=== PATIENT | female | born 1995 | race Caucasian/White ===

== ENCOUNTER 2016-12-31 11:50 | Emergency (ER) | payer BC, OTHER ==
[~2016-12-31] VITALS: Ht 165.1 cm; Wt 60.8 kg
[~2016-12-31 11:50] MED LIST: BCPILLS PO; LEVE500T13 PO; LEVO50TA6 PO
[2016-12-31 11:54] VITALS: Ht 165.1 cm; Wt 60.8 kg
[2016-12-31] MEDS ORDERED: ZONI100C2 PO (12:47)
[2016-12-31] MEDS ORDERED: ZONI50CA2 PO (12:47)
[2016-12-31] MEDS ORDERED: IUD'IUD (12:47)
--- NOTE | 2016-12-31 12:47 | EMERGENCY ROOM VISIT NOTE ---
History Report prepared by Norma: Yissel Whaley Under the Supervision of: Dr. Rosamaria Shaffer D.O. First contact with patient: 12:06 Chief Complaint: PELVIC PAIN Stated Complaint: HIP/PELVIC BONE MISPLACED/ABD. PAIN/IUD MISPLACED History of Present Illness The patient is a 21 year old female who presents to the Emergency Room with complaints of worsening pelvic pain for the past couple of months. She had her first IUD placed by her heavy equipment operator/paver in August. She states that shortly after it was placed she began experiencing a "hip click" in her right hip. She returned to her heavy equipment operator/paver for further evaluation and they thought that everything was fine. The patient states that since then her pain has continued and she has also developed pain into her lower abdomen, lower back, and right buttock. This pain is worsened when she lies on her stomach. Over the past couple of days this pain has become significant worse. She states that she can "feel my bones poking in my hip." Her abdomen feels more bloated and distended than usual. She has started to have pain with ambulation. The patient rates her current pain as a 4/10 in severity. She also notes that she can no longer feel the strings of her IUD. She reports creamy vaginal discharge. She is sexually active, but does not have any concern for STD exposure as she has had the same sexual partner for multiple years. She denies any new underwear, detergents, or soaps. She has not had regular periods since her IUD placement. The patient denies any other gynecological problems. She has noticed that her urine is darker than usual. She also denies any history of injury to her right hip. She does have a history of scoliosis and has been told by her chiropractor that she had some leg length discrepancy. Pt denies headache, change in vision, fevers, chills, chest pain, shortness of breath, nausea, vomiting, diarrhea, pain with urination, and melena. 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 Review of Systems See HPI for pertinent positives & negatives. A total of 10 systems reviewed and were otherwise negative. Past Medical & Surgical Medical Problems: (1) Scoliosis (2) Syncope and collapse Family History Patient reports no known family medical history. Social History Smoking Status: Never Smoker Drug Use: none Marital Status: in relationship Occupation Status: [employer] student Current/Historical Medications Scheduled Cephalexin Monohydrate (Keflex), 500 MG PO BID Levothyroxine Sodium (Levothyroxine Sodium), 50 MCG PO DAILY Zonisamide (Zonegran), 200 MG PO BID Zonisamide (Zonegran), 50 MG PO BID Miscellaneous Medications Iud's (Paragard Intrauterine Hand Salter) Allergies Coded Allergies: No Known Allergies (Unverified , 12/31/16) Physical Exam Vital Signs Date Time Temp Pulse Resp B/P (MAP) Pulse Ox O2 Delivery O2 Flow Rate FiO2 12/31/16 17:44 36.8 52 18 130/70 99 12/31/16 17:38 52 18 130/70 99 Room Air 12/31/16 15:30 60 16 113/72 98 12/31/16 13:39 65 18 119/67 99 Room Air 12/31/16 11:54 36.8 90 18 118/79 99 Room Air Physical Exam GENERAL: alert, tearful, well appearing, well nourished, no distress, non-toxic EYE EXAM: normal conjunctiva, PERRL and EOM's grossly intact OROPHARYNX: no exudate, no erythema, lips, buccal mucosa, and tongue normal and mucous membranes are moist NECK: supple, no nuchal rigidity, no adenopathy, non-tender LUNGS: Clear to auscultation. Normal chest wall mechanics HEART: no murmurs, S1 normal and S2 normal ABDOMEN: abdomen soft, she had slight tenderness to the lower abdomen and right flank, normo-active bowel sounds, no masses, no rebound or guarding. PELVIC: Minimal white discharge noted in the vaginal vault, no bleeding, no evidence of cervicitis, no CMT, no adnexal tenderness. BACK: Back is symmetrical on inspection and there is no deformity, no midline tenderness, no CVA tenderness. SKIN: no rashes and no bruising UPPER EXTREMITIES: upper extremities are grossly normal. LOWER EXTREMITIES: No pitting edema. NEURO EXAM: Normal sensorium, cranial nerves II-XII grossly intact, normal speech, no gross weakness of arms, no gross weakness of legs. Medical Decision & Procedures ER Provider Diagnostic Interpretation: Radiology results have been interpreted by the radiologist and reviewed by me. EXAMINATION: PELVIC ULTRASOUND (transabdominal and endovaginal scanning) CLINICAL HISTORY: Pelvic pain. Vaginal discharge. IUD. COMPARISON STUDY: None FINDINGS: The uterus measured 6.5 x 3.1 x 3.7 cm. An IUD is visualized within the lower uterine segment. The tip is 18 mm from the fundal apex. The endometrial stripe measured 5 mm. The right ovary measured 33 x 17 x 26 mm. There is a 15 mm dominant follicle. The left ovary measured 32 x 18 x 27 mm. There is no ultrasonographic evidence of ovarian torsion. It should be noted that ovarian torsion can be present with normal Doppler ultrasonographic findings. There was no evidence of pathologic free pelvic fluid. IMPRESSION: 1. An IUD is visualized within the lower uterine segment. The tip is 18 mm from the fundal apex 2. 5 mm endometrial stripe 3. Normal ovaries Electronically signed by: Roc Rodriguez M.D. 12/31/2016 3:40 PM Dictated Date/Time: 12/31/2016 3:38 PM RIGHT HIP UNILATERAL 2 VIEWS CLINICAL HISTORY: right hip pain Right pain COMPARISON: None. DISCUSSION: The bones and joint spaces appear intact. There is no evidence of fracture, dislocation or bony disease. There is no evidence for soft tissue swelling. IMPRESSION: Negative study. Electronically signed by: Alessandro Rosales M.D. 12/31/2016 3:05 PM Dictated Date/Time: 12/31/2016 3:04 PM Laboratory Results 12/31/16 12:30 Red Blood Count 4.07, Mean Corpuscular Volume 91.2, Mean Corpuscular Hemoglobin 31.2, Mean Corpuscular Hemoglobin Concent 34.2, Mean Platelet Volume 10.3, Neutrophils (%) (Auto) 44.7, Lymphocytes (%) (Auto) 23.5, Monocytes (%) (Auto) 6.0, Eosinophils (%) (Auto) 24.5, Basophils (%) (Auto) 1.3, Neutrophils # (Auto ) 2.85, Lymphocytes # (Auto) 1.50, Monocytes # (Auto) 0.38, Eosinophils # (Auto ) 1.56, Basophils # (Auto) 0.08 12/31/16 12:30 Test 12/31/16 12:30 12/31/16 16:40 White Blood Count 6.37 K/uL (4.8-10.8) Red Blood Count 4.07 M/uL (4.2-5.4) Hemoglobin 12.7 g/dL (12.0-16.0) Hematocrit 37.1 % (37-47) Mean Corpuscular Volume 91.2 fL (80-100) Mean Corpuscular Hemoglobin 31.2 pg (25-34) Mean Corpuscular Hemoglobin Concent 34.2 g/dl (32-36) Platelet Count 257 K/uL (130-400) Mean Platelet Volume 10.3 fL (7.4-10.4) Neutrophils (%) (Auto) 44.7 % Lymphocytes (%) (Auto) 23.5 % Monocytes (%) (Auto) 6.0 % Eosinophils (%) (Auto) 24.5 % Basophils (%) (Auto) 1.3 % Neutrophils # (Auto) 2.85 K/uL (1.4-6.5) Lymphocytes # (Auto) 1.50 K/uL (1.2-3.4) Monocytes # (Auto) 0.38 K/uL (0.11-0.59) Eosinophils # (Auto) 1.56 K/uL (0-0.5) Basophils # (Auto) 0.08 K/uL (0-0.2) RDW Standard Deviation 41.7 fL (36.4-46.3) RDW Coefficient of Variation 12.5 % (11.5-14.5) Immature Granulocyte % (Auto) 0.0 % Immature Granulocyte # (Auto) 0.00 K/uL (0.00-0.02) Urine Color YELLOW Urine Appearance CLEAR (CLEAR) Urine pH 5.5 (4.5-7.5) Urine Specific [place] 1.016 (1.000-1.030) Urine Protein TRACE (NEG) Urine Glucose (UA) NEG (NEG) Urine Ketones NEG (NEG) Urine Occult Blood NEG (NEG) Urine Nitrite NEG (NEG) Urine Bilirubin NEG (NEG) Urine Urobilinogen NEG (NEG) Urine Leukocyte Esterase TRACE (NEG) Urine WBC (Auto) 5-10 /hpf (0-5) Urine RBC (Auto) 0-4 /hpf (0-4) Urine Hyaline Casts (Auto) 5-10 /lpf (0-5) Urine Epithelial Cells (Auto) >30 /lpf (0-5) Urine Bacteria (Auto) 1+ (NEG) Anion Gap 10.0 mmol/L (3-11) Est Creatinine Clear Calc Drug Dose 79.4 ml/min Estimated GFR () 92.6 Estimated GFR (Non- 79.9 BUN/Creatinine Ratio 10.6 (10-20) Calcium Level 8.9 mg/dl (8.5-10.1) Human Chorionic Gonadotropin, Quant < 1 mIU/mL Date/Time Source Procedure Growth Status 12/31/16 16:40 Vaginal Swab Trichomonas Preparation - Final Complete Laboratory results per my review. Medications Administered Medications (Trade) Dose Ordered Sig/Amandeep Route Start Time Stop Time Status Last Admin Dose Admin Cephalexin Monohydrate (Keflex Cap) 500 mg NOW ONCE PO 12/31/16 15:45 12/31/16 15:46 DC 12/31/16 15:50 500 MG Fluconazole (Diflucan Tab) 150 mg NOW STAT PO 12/31/16 17:26 12/31/16 17:27 DC 12/31/16 17:35 150 MG ED Course 1206: The patient was evaluated in room C10 . A complete history and physical exam was performed. 1545: Keflex 500 mg PO 1618: I updated the patient on her results. She is doing well at this time. 1640: I performed a pelvic examination at this time. Please see the physical examination for my findings. I discussed the results and treatment plan with the patient. I answered all pertaining questions that she had. She expressed understanding and verbalized agreement. The patient will be discharged home.\\ 1726: Diflucan 150 mg PO Medical Decision Differential diagnoses includes STD, BV, malpositioned IUD, TOA, PID, UTI, pyelonephritis, kidney stone, musculoskeletal pain. Medication Reconciliation: I attest that I have personally reviewed the patient' s current medication list. Blood pressure screening: Patient was found to have normal blood pressure on screening and does not require follow-up. Patient with several chronic/subacute problems presenting today most concerned about her IUD and hip pain. Ultrasound reassuring. Cultures sent, the patient low risk for occult STD given sexual history. Doubt TOA, PID based on presentation. Patient neurologist history of scoliosis and is concerned that this may be contributing to her hip pain as well. Discussed outpatient evaluation by orthopedics. Patient also inquired about possible returning to her chiropractor for additional evaluation. Doubt stone, pyelo, patient with possible mild early UTI on urinalysis although specimen suboptimal. Doubt occult septic arthritis, lumbar radiculopathy, discitis, epidural abscess/ hematoma. No CVA tenderness, no midline spinal tenderness. Doubt other acute intra-abdominal etiology. Abdomen otherwise soft and nontender, labs reassuring. Did not feel patient warranted CAT scan at this time. Discussed follow-up, symptoms watch return for, antibiotics, pending cultures, she verbalized understanding was agreeable with plan. Patient given one time dose of Diflucan here for possible released infection given pelvic exam findings. Patient was negative for Trichomonas, GC and chlamydia are pending. Impression Primary Impression: Vaginal discharge Additional Impressions: Hip pain UTI (urinary tract infection) Scribe Attestation The scribe's documentation has been prepared under my direction and personally reviewed by me in its entirety. I confirm that the note above accurately reflects all work, treatment, procedures, and medical decision making performed by me. Departure Information Dispostion Home / Self-Care Prescriptions Cephalexin Monohydrate (Keflex) 500 Mg Cap 500 MG PO BID, #14 CAP Prov: Rosamaria Shaffer, DO 12/31/16 Referrals No Doctor, Assigned (PCP) Patient Instructions My [facility] Additional Instructions Please take antibiotic as prescribed. 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 Your IUD is in normal position according to the ultrasound. Please follow-up with your family doctor or with an customer energy specialist regarding the hip pain and clicking you have experienced. The x-rays here today were negative. They may perform additional testing including further imaging. If your cultures are positive you will receive a phone call and an antibiotic will be called in for you. If you develop any worsening abdominal pain, hip pain, back pain, develop fevers or chills, or nausea and vomiting, or you have any other new concerns, please return the emergency room. Problem Qualifiers Additional Impressions: Hip pain Laterality: right Qualified Codes: M25.551 - Pain in right hip UTI (urinary tract infection) Urinary tract infection type: acute cystitis Hematuria presence: without hematuria Qualified Codes: N30.00 - Acute cystitis without hematuria
[2016-12-31 12:52] LABS: BASO % 1.3 %; BASO ABS # 0.08 K/uL (0-0.2); COMPLETE YES; EOS % 24.5 %; HEMATOCRIT 37.1 % (37-47); LYMPH % 23.5 %; MEAN CELL VOLUME 91.2 fL (80-100); MEAN CORPUSCULAR HEMOGLOBIN 31.2 pg (25-34); MEAN CORPUSCULAR HGB CONC 34.2 g/dl (32-36); MEAN PLATELET VOLUME 10.3 fL (7.4-10.4); NEUT % 44.7 %; PLATELET COUNT 257 K/uL (130-400); RED BLOOD COUNT 4.07 M/uL (4.2-5.4); WHITE BLOOD COUNT 6.37 K/uL (4.8-10.8)
[2016-12-31 13:02] LABS: URINE APPEARANCE CLEAR (CLEAR); URINE BILIRUBIN NEG (NEG); URINE COLOR YELLOW; URINE EPITHELIAL CELL AUTO >30 /lpf (0-5); URINE NITRITE NEG (NEG); URINE PH 5.5 (4.5-7.5); URINE SPECIFIC GRAVITY 1.016 (1.000-1.030); UROBILINOGEN NEG (NEG); ZZUR CULT IF INDIC CLEAN CATCH YES
[2016-12-31 13:04] LABS: MANUAL MICROSCOPIC REQUIRED? NO; REVIEW REQ? NO
[2016-12-31 13:06] LABS: CALCIUM 8.9 mg/dl (8.5-10.1)
[2016-12-31 13:07] LABS: BUN/CREATININE RATIO 10.6 (10-20); POTASSIUM 3.7 mmol/L (3.5-5.1)
--- NOTE | 2016-12-31 15:06 | DIAGNOSTIC IMAGING REPORT ---
RIGHT HIP UNILATERAL 2 VIEWS CLINICAL HISTORY: right hip pain Right pain COMPARISON: None. DISCUSSION: The bones and joint spaces appear intact. There is no evidence of fracture, dislocation or bony disease. There is no evidence for soft tissue swelling. IMPRESSION: Negative study. Electronically signed by: Alessandro Rosales M.D. 12/31/2016 3:05 PM Dictated Date/Time: 12/31/2016 3:04 PM
--- NOTE | 2016-12-31 15:41 | DIAGNOSTIC IMAGING REPORT ---
EXAMINATION: PELVIC ULTRASOUND (transabdominal and endovaginal scanning) CLINICAL HISTORY: Pelvic pain. Vaginal discharge. IUD. COMPARISON STUDY: None FINDINGS: The uterus measured 6.5 x 3.1 x 3.7 cm. An IUD is visualized within the lower uterine segment. The tip is 18 mm from the fundal apex. The endometrial stripe measured 5 mm. The right ovary measured 33 x 17 x 26 mm. There is a 15 mm dominant follicle. The left ovary measured 32 x 18 x 27 mm. There is no ultrasonographic evidence of ovarian torsion. It should be noted that ovarian torsion can be present with normal Doppler ultrasonographic findings. There was no evidence of pathologic free pelvic fluid. IMPRESSION: 1. An IUD is visualized within the lower uterine segment. The tip is 18 mm from the fundal apex 2. 5 mm endometrial stripe 3. Normal ovaries Electronically signed by: Roc Rodriguez M.D. 12/31/2016 3:40 PM Dictated Date/Time: 12/31/2016 3:38 PM
[2016-12-31] MEDS ORDERED: CEPHALEXIN MONOHYDRATE 250 MG CAP PO ONE (15:45)
[2016-12-31] MEDS ORDERED: FLUCONAZOLE 50 MG TAB PO STA (17:26)
[2016-12-31] MEDS ORDERED: CEPH500C PO (17:30)
[2016-12-31 17:44] VITALS: BP 130/70; PULSE 52; TEMP 36.8; O2SAT 99
[2017-01-03 08:47] LABS: CHLAMYDIA TRACH RNA*** NOT DETECTED (NOT DETECTED); GC (NEIS GONORRHOEAE)RNA** NOT DETECTED (NOT DETECTED)
== END 2016-12-31 17:45 | disposition home or self-care (01) ==
LOC: C.EDB 11:53 → C.EDC 17:45
DX: N89.8 Other specified noninflammatory disorders of vagina (principal); M25.551 Pain in right hip; N30.00 Acute cystitis without hematuria; M41.9 Scoliosis, unspecified

== ENCOUNTER → 2017-03-20 | Outpatient (CLI) | payer BC ==
[~2017-03-20] MED LIST changes: -BCPILLS PO; +CEPH500C PO; +IUD'IUD; -LEVE500T13 PO; +ZONI100C2 PO; +ZONI50CA2 PO
--- NOTE | 2017-03-20 13:21 | EEG Procedure Note ---
EEG Procedure Note Date of Service Mar 20, 2017. Start / End Times Start Time: 9:33 AM End Time: 9:54 AM Referring Physician ANTONIO Al History This is a 22-year-old female with seizure-like activity. EEG for further evaluation of seizure etiology. Home Medication List Scheduled Cephalexin Monohydrate (Keflex), 500 MG PO BID Levothyroxine Sodium (Levothyroxine Sodium), 50 MCG PO DAILY Zonisamide (Zonegran), 200 MG PO BID Zonisamide (Zonegran), 50 MG PO BID Miscellaneous Medications Iud's (Paragard Intrauterine Forensic Medical Examiner) Description This is a 21 electrode EEG with a single channel dedicated to limited EKG. The electrodes were placed in accordance with the International 10-20 system. At the start of the recording the patient was in an awake state. Background was well organized and composed of symmetric mixed alpha and beta frequencies. There was a symmetric well-formed moderate amplitude 9-10 Hz posterior dominant rhythm that was reactive to eye opening and closure. Hyperventilation with good effort produced no abnormalities. Intermittent photic stimulation at various frequencies produced no abnormalities. Sleep was indicated by vertex waves and symmetric sleep spindles. There was occasional mild left temporal theta slowing and rarely generalized theta slowing lasting less than a second during the awake state. Interpretation This is an abnormal routine EEG secondary to occasional mild left temporal theta slowing during the awake state. There was no electrographic seizures or epileptiform discharges. Clinical Correlation While generalized theta slowing and temporal theta slowing can be seen in the drowsy state, focal left temporal theta slowing indicates cerebral dysfunction in that area, and may be consistent with a temporal lobe epilepsy depending on clinical presentation.
== END | disposition home or self-care (01) ==
LOC: C.NEUR 09:17
PROVIDERS: ATTEND Physician Assistant
DX: R56.9 Unspecified convulsions (principal)

== ENCOUNTER → 2017-04-30 | Outpatient (CLI) | payer BC ==
[2017-04-30 18:04] LABS: BASO % 0.4 %; BASO ABS # 0.04 K/uL (0-0.2); COMPLETE YES; EOS % 3.1 %; HEMATOCRIT 37.7 % (37-47); IG% 0.1 %; LYMPH % 22.3 %; LYMPH ABS # 2.04 K/uL (1.2-3.4); MEAN CELL VOLUME 91.7 fL (80-100); MEAN CORPUSCULAR HEMOGLOBIN 31.1 pg (25-34); MEAN PLATELET VOLUME 9.3 fL (7.4-10.4); MONO % 7.5 %; NEUT % 66.6 %; PLATELET COUNT 262 K/uL (130-400); RED BLOOD COUNT 4.11 M/uL (4.2-5.4); WHITE BLOOD COUNT 9.16 K/uL (4.8-10.8)
--- NOTE | 2017-04-30 18:08 | DIAGNOSTIC IMAGING REPORT ---
R HIP UNILATERAL 2 VIEWS, L HIP UNILATERAL 2 VIEWS CLINICAL HISTORY: M25.551 Right hip pain. Left hip pain. Prior fall. COMPARISON STUDY: Right hip 12/31/2016. FINDINGS: No fracture or dislocation within the right or left hip. Cartilage spaces are maintained. The visualized pelvic bones are intact. An intrauterine device is unchanged in position. Soft tissues are unremarkable. No radiopaque foreign bodies. IMPRESSION: Unremarkable bilateral hips. Electronically signed by: Tony Irene M.D. 04/30/2017 6:07 PM Dictated Date/Time: 04/30/2017 6:04 PM
[2017-04-30 18:27] LABS: ALT/SGPT 21 U/L (12-78); AST/SGOT 23 U/L (15-37); BLOOD UREA NITROGEN 10 mg/dl (7-18); CALCIUM 8.9 mg/dl (8.5-10.1); CARBON DIOXIDE 27 mmol/L (21-32); CHLORIDE 106 mmol/L (98-107); CREATININE 0.68 mg/dl (0.60-1.20); GLUCOSE 81 mg/dl (70-99); MAGNESIUM 2.4 mg/dl (1.8-2.4); POTASSIUM 3.8 mmol/L (3.5-5.1); SODIUM 137 mmol/L (136-145)
[2017-04-30 18:37] LABS: ALB/GLOB RATIO 1.1 (0.9-2); ALKALINE PHOSPHATASE 71 U/L (45-117)
== END | disposition home or self-care (01) ==
LOC: C.RAD 17:30
PROVIDERS: ATTEND Physician Assistant
DX: M25.551 Pain in right hip (principal); R56.9 Unspecified convulsions

== ENCOUNTER → 2017-05-09 | Outpatient (CLI) | payer BC ==
[2017-05-09 13:46] LABS: CHOLESTEROL/HDL RATIO 1.9
== END | disposition home or self-care (01) ==
LOC: C.LAB 12:02
PROVIDERS: ATTEND Internal Medicine
DX: Z00.00 Encounter for general adult medical examination without abnormal findings (principal); E03.9 Hypothyroidism, unspecified

== ENCOUNTER → 2017-05-10 | Outpatient (CLI) | payer BC ==
[2017-05-10 14:38] LABS: URINE APPEARANCE CLEAR (CLEAR); URINE BILIRUBIN NEG (NEG); URINE COLOR YELLOW; URINE NITRITE NEG (NEG); URINE PH 6.5 (4.5-7.5); URINE SPECIFIC GRAVITY 1.014 (1.000-1.030); UROBILINOGEN NEG (NEG)
[2017-05-10 14:47] LABS: MANUAL MICROSCOPIC REQUIRED? NO; REVIEW REQ? NO
[2017-05-15 02:04] LABS: CHLAMYDIA TRACH RNA*** NOT DETECTED (NOT DETECTED); GC (NEIS GONORRHOEAE)RNA** NOT DETECTED (NOT DETECTED); TRICHOMONAS VAGINALIS RNA** NOT DETECTED (NOT DETECTED)
== END | disposition home or self-care (01) ==
LOC: C.LABSPEC 13:26
PROVIDERS: ATTEND Physician Assistant
DX: N89.8 Other specified noninflammatory disorders of vagina (principal); R39.9 Unspecified symptoms and signs involving the genitourinary system

== ENCOUNTER 2017-06-02 20:34 | Inpatient (IN) | payer BC ==
[~2017-06-02] VITALS: Ht 162.6 cm; Wt 62.2 kg
[2017-06-02] MEDS ORDERED: NORE1CHW PO (21:03)
[2017-06-02] MEDS ORDERED: TRL300 PO (21:03)
[2017-06-02 21:04] VITALS: O2SAT 97
[2017-06-02 21:18] LABS: BASO ABS # 0.13 K/uL (0-0.2); COMPLETE YES; EOS % 20.9 %; IG% 0.5 %; LYMPH % 26.8 %; MEAN CELL VOLUME 90.9 fL (80-100); MEAN CORPUSCULAR HEMOGLOBIN 31.5 pg (25-34); MEAN CORPUSCULAR HGB CONC 34.7 g/dl (32-36); MEAN PLATELET VOLUME 9.6 fL (7.4-10.4); MONO % 4.4 %; NEUT % 46.4 %; PLATELET COUNT 327 K/uL (130-400); RED BLOOD COUNT 4.73 M/uL (4.2-5.4); WHITE BLOOD COUNT 13.08 K/uL (4.8-10.8)
[2017-06-02 21:25] LABS: BUN/CREATININE RATIO 17.4 (10-20); CALCIUM 9.1 mg/dl (8.5-10.1); CREATININE 0.84 mg/dl (0.60-1.20); POTASSIUM 3.2 mmol/L (3.5-5.1)
[2017-06-02 21:31] LABS: ACETAMINOPHEN < 2 ug/ml (10-30)
[2017-06-02 21:36] LABS: THYROID STIMULATING HORMONE 1.34 uIu/ml (0.300-4.500)
--- NOTE | 2017-06-02 21:46 | EMERGENCY ROOM VISIT NOTE ---
History Report prepared by Norma: Shayne Dean Under the Supervision of: Dr. Gregg Foster M.D. First contact with patient: 21:01 Chief Complaint: OVERDOSE (INTENTIONAL) Stated Complaint: DISORIENTED,LOSS OF FEELING FORGETFUL History of Present Illness The patient is a 22 year old female with a past medical history of epilepsy who presents to the ED with a cc of an episode of intentional overdose occurring today at around 1900. Positive vomiting and head pain on the top of her head. The patient states that she intentionally took "an entire bottle of either 50mg or 100mg Zonegran" today. She notes that she tried to intentionally hurt herself due to her anxiety and depression. Per boyfriend, the patient had been staying in the [facility] for the past three weeks, but was released yesterday. He notes she has tried to kill herself before. He reports that she tried to drink an entire bottle of NyQuil. HPI limited secondary to altered mental status. Source of History: patient Onset: today around 1900 Position: other (global) Quality: other (intentional overdose) Timing: other (an episode) Associated Symptoms: + vomiting Note: she also complains of head pain on the top of her head Review of Systems ROS limited secondary to altered mental status. Past Medical & Surgical Medical Problems: (1) Anxiety (2) Depression (3) Epilepsy (4) Scoliosis (5) Syncope and collapse Family History Patient reports no known family medical history. Social History Smoking Status: Never Smoker Drug Use: none Marital Status: in relationship Occupation Status: [employer] student Current/Historical Medications Scheduled Levothyroxine Sodium (Levothyroxine Sodium), 50 MCG PO DAILY Oxcarbazepine (Oxcarbazepine), 300 MG PO BID Zonisamide (Zonegran), 200 MG PO BID Zonisamide (Zonegran), 50 MG PO BID Allergies Coded Allergies: No Known Allergies (Unverified , 12/31/16) Physical Exam Vital Signs Date Time Temp Pulse Resp B/P (MAP) Pulse Ox O2 Delivery O2 Flow Rate FiO2 06/02/17 23:31 97 24 117/84 100 Room Air 06/02/17 23:01 83 23 120/83 100 Room Air 06/02/17 22:31 89 23 117/85 100 Room Air 06/02/17 22:01 100 13 124/82 99 Room Air 06/02/17 21:31 118 18 130/86 97 Room Air 06/02/17 21:09 91 06/02/17 21:04 97 Room Air 06/02/17 21:01 125/71 06/02/17 20:38 37.0 125 22 117/72 98 Room Air Physical Exam GENERAL: Awake, alert, well-appearing, NAD HENT: Normocephalic, atraumatic. EYES: Normal conjunctiva. Sclera non-icteric. NECK: Supple. No nuchal rigidity. FROM. RESPIRATORY: CTAB, no rhonchi, wheezing, crackles CARDIAC: No MRG, tachycardic. ABDOMEN: Soft, NTND, BS+ MSK: No chest wall TTP, no LE edema NEURO: CN 2-12 intact, 5/5 upper and lower extremity strength, no dysmetria, no drift, good finger to nose, no sensory deficits. ANO x3, repeated speech, GCS 15 , follows commands in all four extremities PSYCH: Depressed mood, tearful. SKIN: No rash or jaundice noted. Medical Decision & Procedures Laboratory Results 06/02/17 20:45 Red Blood Count 4.73, Mean Corpuscular Volume 90.9, Mean Corpuscular Hemoglobin 31.5, Mean Corpuscular Hemoglobin Concent 34.7, Mean Platelet Volume 9.6, Neutrophils (%) (Auto) 46.4, Lymphocytes (%) (Auto) 26.8, Monocytes (%) (Auto) 4.4, Eosinophils (%) (Auto) 20.9, Basophils (%) (Auto) 1.0, Neutrophils # (Auto ) 6.08, Lymphocytes # (Auto) 3.50, Monocytes # (Auto) 0.57, Eosinophils # (Auto ) 2.74, Basophils # (Auto) 0.13 06/02/17 20:45 Test 06/02/17 20:45 06/02/17 21:32 White Blood Count 13.08 K/uL (4.8-10.8) Red Blood Count 4.73 M/uL (4.2-5.4) Hemoglobin 14.9 g/dL (12.0-16.0) Hematocrit 43.0 % (37-47) Mean Corpuscular Volume 90.9 fL (80-100) Mean Corpuscular Hemoglobin 31.5 pg (25-34) Mean Corpuscular Hemoglobin Concent 34.7 g/dl (32-36) Platelet Count 327 K/uL (130-400) Mean Platelet Volume 9.6 fL (7.4-10.4) Neutrophils (%) (Auto) 46.4 % Lymphocytes (%) (Auto) 26.8 % Monocytes (%) (Auto) 4.4 % Eosinophils (%) (Auto) 20.9 % Basophils (%) (Auto) 1.0 % Neutrophils # (Auto) 6.08 K/uL (1.4-6.5) Lymphocytes # (Auto) 3.50 K/uL (1.2-3.4) Monocytes # (Auto) 0.57 K/uL (0.11-0.59) Eosinophils # (Auto) 2.74 K/uL (0-0.5) Basophils # (Auto) 0.13 K/uL (0-0.2) RDW Standard Deviation 40.5 fL (36.4-46.3) RDW Coefficient of Variation 12.1 % (11.5-14.5) Immature Granulocyte % (Auto) 0.5 % Immature Granulocyte # (Auto) 0.06 K/uL (0.00-0.02) Anion Gap 12.0 mmol/L (3-11) Est Creatinine Clear Calc Drug Dose 90.0 ml/min Estimated GFR () 113.5 Estimated GFR (Non- 98.0 BUN/Creatinine Ratio 17.4 (10-20) Calcium Level 9.1 mg/dl (8.5-10.1) Total Bilirubin 0.3 mg/dl (0.2-1) Direct Bilirubin 0.1 mg/dl (0-0.2) Aspartate Amino Transf (AST/SGOT) 20 U/L (15-37) Alanine Aminotransferase (ALT/SGPT) 82 U/L (12-78) Alkaline Phosphatase 110 U/L (45-117) Total Protein 7.8 gm/dl (6.4-8.2) Albumin 4.1 gm/dl (3.4-5.0) Thyroid Stimulating Hormone (TSH) 1.340 uIu/ml (0.300-4.500) Human Chorionic Gonadotropin, Qual NEG (NEG) Salicylates Level < 1.7 mg/dl (2.8-20) Acetaminophen Level < 2 ug/ml (10-30) Ethyl Alcohol mg/dL < 3.0 mg/dl (0-3) Laboratory results reviewed by me ECG Indication: tachycardia Rate (beats per minute): 104 Rhythm: sinus tachycardia Findings: other (normal axis, no STS changes or T-wave inversion) ED Course 2104: I spoke to poison control. 2119: The patient was evaluated in room C3. A complete history and physical exam was performed. Medical Decision The patient is a 22 year old female with a past medical history of epilepsy who presents to the ED with a cc of an episode of intentional overdose occurring today at around 1900. Positive vomiting and head pain on the top of her head. Differential diagnosis: Etiologies such as mood disorder, infection, hypoglycemia, electrolyte abnormalities, cardiac sources, intracerebral event, toxicologic, neurologic, as well as others were entertained. Patient was seen and evaluated at the bedside. I received some history from the boyfriend as well as the patient. Patient was a and O 3 albeit somewhat repetitive with her words but she was able to follow commands without issue. Patient was able to move all of her extremities to command. Patient took an unknown amount of Zonisamide at 7pm which was approximately 60 pills as she had a full bottle and she takes this medication twice a day (30 days x BID). Patient takes either 50 or 100 mg. 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 EKG showed sinus tach w/o PA, QRS, or QTc prolongation. Patient did have blood work that was completed. Patient's blood work and tox screen was fairly unremarkable. Patient was cleared medically and I did speak with the mental health specialist and was pending further evaluation and likely placement. I did sign out the patient to the evening physician who understood the plan of care. Head Trauma GCS Score: 15 Impression Primary Impression: Intentional drug overdose Additional Impression: Hypokalemia Scribe Attestation The scribe's documentation has been prepared under my direction and personally reviewed by me in its entirety. I confirm that the note above accurately reflects all work, treatment, procedures, and medical decision making performed by me. Departure Information Dispostion [facility] Acute Care Referrals Jordin Rehman M.D. (PCP) Patient Instructions My [facility] Problem Qualifiers Primary Impression: Intentional drug overdose Encounter type: initial encounter Qualified Codes: T50.902A - Poisoning by unspecified drugs, medicaments and biological substances, intentional self-harm , initial encounter
[2017-06-02 22:15] LABS: PREG INTERNAL NEGATIVE QC NEG CLEAR BACKGROUND; PREG INTERNAL POSITIVE QC POS CONTROL LINE
[2017-06-03] MEDS ORDERED: POTASSIUM CHLORIDE 10 MEQ TABCR PO STA (00:28)
[2017-06-03] MEDS ORDERED: MAGNESIUM OXIDE 400 MG TAB PO STA (00:28)
[2017-06-03] MEDS ORDERED: LORAZEPAM 2 MG/ML 1 ML VIAL IV STA (00:44)
[2017-06-03 00:49] LABS: URINE APPEARANCE TURBID (CLEAR); URINE BILIRUBIN NEG (NEG); URINE COLOR YELLOW; URINE EPITHELIAL CELL AUTO 20-30 /lpf (0-5); URINE NITRITE NEG (NEG); URINE SPECIFIC GRAVITY 1.018 (1.000-1.030); UROBILINOGEN NEG (NEG)
[2017-06-03 00:50] LABS: MANUAL MICROSCOPIC REQUIRED? NO; REVIEW REQ? YES
[2017-06-03 01:11] LABS: BENZODIAZEPINE, URINE NEG (NEG); COCAINE,URINE NEG (NEG); PHENCYCLIDINE, URINE NEG (NEG)
--- NOTE | 2017-06-03 06:01 | EMERGENCY ROOM VISIT NOTE ---
ED Visit Note First contact with patient: 01:00 This case was signed out to me at change of shift awaiting psychiatric evaluation and bed placement. The patient was accepted on 3 S. and will be admitted there voluntarily.
[2017-06-03 06:43] VITALS: O2SAT 97
[2017-06-03] MEDS ORDERED: hydrOXYzine HCL 25 MG TAB PO PRN (06:45)
[2017-06-03] MEDS ORDERED: SODIUM CHLORIDE 0.65% NA SOLN 45 ML (OCEAN) PRN (06:45)
[2017-06-03] MEDS ORDERED: NURSING VERBAL MED ORDER ONE (06:45)
[2017-06-03] MEDS ORDERED: ALUMINUM/MAGNESIUM SUSP 30 ML UDC PO PRN (06:45)
[2017-06-03] MEDS ORDERED: BISMUTH SUBSALICYLATE PER ML OMNICELL CHARGE PO PRN (06:45)
[2017-06-03 07:01] VITALS: BP_SYST 100; BP_SYST 106; BP_DIAS 66; BP_DIAS 68; PULSE 78; PULSE 94; TEMP 36.8
[2017-06-03 11:41] VITALS: BP 100/66; PULSE 78; TEMP 36.8; Ht 162.6 cm; Wt 62.2 kg
--- NOTE | 2017-06-03 11:57 | Psychiatric History & Physical ---
History Date of Service Jun 03, 2017. Identifying Data Rachel Martins is a 22-year-old female who resides in [place] with her boyfriend, who presented to the ED following an intentional toxic ingestion of zonegran in a suicide attempt. She is admitted voluntarily. Information is gathered from the patient and considered to be reliable. Chief Complaint "I took a bottle of pills.". History of Present Illness Rachel is a 22 yo woman who reports that she has been depressed for the last 2.5 years relative to multiple breakups and other stressors that she is poorly able to explain. She had never been in psychiatric treatment until 3 weeks ago when she made her first suicide attempt by overdosing on Nyquil. She was hospitalized at the [facility] for 20 days, having just been discharged on Saturday , 2 days ago. She reports that she was treated with Lexapro during her stay and diagnosed with depression. During her stay she decided that she needed to break up with her boyfriend of 2.5 years saying that she felt "stuck", "codependent". Upon leaving the [facility] she says that she had a visit with her mother who came up from the [facility], looked at some apartments, but then returned to the apartment she shares with her boyfriend, but asked him to go stay with his parents. She felt like she had no resources: no friends, no place to go, and began feeling sadder. On Saturday after mu-ism, she went to the pharmacy to rock picker her seizure meds (but did not fill her antidepressant) and when she couldn't shake the sadness, overdosed on the entire bottle of Zonegran about 7 pm. She summoned her BF after taking the OD, and he brought her to the ED. 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 Today the patient is a difficult historian, finding it difficult to express herself verbally. She indicates that she continues to feel depressed and admits that she ingested the Zonegran overdose yesterday because she "didn't want to be here" anymore. She reports that she has been having trouble sleeping , getting only about 4 hours per night. She experiences difficulty staying asleep and this has been going on for months. Her appetite has been "not good" and her weight has been up and down, currently saying she is down 5-10 pounds over the last 5-6 months. Her energy is described as "sleepy" and tends to sleep a great deal up to 16 hours at night. Although she is getting to work, she finds it difficult to get there. She describes having anxiety on a chronic basis, going on for years. She also experiences panic attacks that occur as frequently as weekly, triggered usually by work. She describes a sense of being unable to breathe during panic attacks. She reports a history of eating disorder behaviors, not wanting to put on weight and attempting to purge but says that it "never worked". She reports a history of self-injurious behaviors , usually cutting on her legs. Her last episode occurred while she was in the [facility] when she took her earring often used it to injure her left leg. She describes chronic problems with irritability but denies outright anger. She endorses periods during which she feels "wired", has a decreased need for sleep , increased spending $100-$300. Her last episode was prior to going to [employer]. She cannot tell me when the started or how many episodes she has had. Past Psychiatric History Current OP Treatment: psychiatrist (referred to [facility] but has not yet had an appointment), therapist (referred but has not had an appointment) Prior OP Treatment: no prior treatment Prior Psych Hospitalizations: [facility] (for 20 days, just having been discharged on June 01) Access to a Gun: No Suicide Attempts: Yes Past Medication Trials Lamictal-trialed for seizures, developed a rash Remeron-didn't work for depression Past Medical/Surgical History History of Concussion/Seizure: Yes (reports history of both grand mal and absence seizures having been diagnosed at the age of 20. Currently sees Lennie ALVAREZ for neurology) (1) Hypothyroidism (2) Epilepsy Allergies Allergies: Coded Allergies: No Known Allergies (Unverified , 12/31/16) Home Medications Scheduled Levothyroxine Sodium (Levothyroxine Sodium), 50 MCG PO DAILY Oxcarbazepine (Oxcarbazepine), 300 MG PO BID Zonisamide (Zonegran), 200 MG PO BID Zonisamide (Zonegran), 50 MG PO BID Family History Patient reports no known family medical history. History of Suicide: No History of Substance Abuse: Yes (grandfather alcohol) Psychiatric History: Yes (father and sister with depression) Alcohol Use Alcohol Use In Past 12 Months: Yes Will have alcohol in 2 days per week, generally having 3-5 drinks per day Smoking Use Smoking Status: Light Tobacco Smoker Smokes 7 cigarettes daily Substance History Patient admits to occasional use of cannabis, last use 3 weeks or more ago. Denies the use of other illegal substances. Has never had any legal problems as a result of substances. Personal History Lives in: [employer] with a boyfriend Childhood: Raised by both her mother and father until they at the age of 11. She lived with her mother. Her father then from complications from porphyria when she was 15. She has 1 older sister. 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 [employer] Relationship History: never Children: none Spiritual Affiliation: Jain Legal History: none Psychological Trauma History: Denies Hx Traumatic Event Review of Systems Constitutional: denies no symptoms reported, denies see HPI, denies chills, denies diaphoresis, denies fever, denies malaise, denies weakness, denies other Eyes: denies: no symptoms, as stated in HPI, eye pain, tearing, itching, redness, discharge, double vision, visual changes, blurred vision, photophobia, other ENT: denies: no symptoms reported, see HPI, ear pain, ear discharge, loss of hearing, tinnitus, nasal pain, nasal congestion, rhinorrhea, epistaxis, sore throat, stidor, throat swelling, mouth pain, mouth swelling, dental pain, gum swelling, other Cardiovascular: denies: no symptoms reported, see HPI, chest pain, chest tightness, chest pressure, diaphoresis, palpitations, syncope, other Respiratory: reports: cough (nonproductive) Gastrointestinal: denies no symptoms reported, denies see HPI, denies abdominal pain, denies constipation, denies diarrhea, denies nausea, denies vomiting, denies other Genitourinary - Female: denies: no symptoms, see HPI, rash, amenorrhea, dysmenorrhea, menorrhagia, metrorrhagia, , vaginal bleeding, vaginal itching, vaginal discharge, vulvadynia, other Musculoskeletal: denies no symptoms reported, denies see HPI, denies back pain , denies gout, denies joint pain, denies joint swelling, denies muscle pain, denies muscle stiffness, denies neck pain, denies other Integumentary: denies no symptoms reported, denies see HPI, denies change in color, denies change in hair/nails, denies dryness, denies lesions, denies lumps , denies rash, denies other Neurologic: denies: no symptoms, see HPI, headache, numbness, paresthesias, pre -existing deficit, seizure, tingling, tremors, general weakness, tics, focal weakness, vertigo, lethargy, memory loss, dizziness, other Endocrine: denies: no symptoms, as stated in HPI, cold intolerance, heat intolerance, hair changes, goiter, polydipsia, polyuria, skin changes, other Hematologic / Lymphatic: denies: no symptoms, as stated in HPI, abnormal clotting, adenopathy, anemia, easy bleeding, easy bruising, gums bleeding, petechiae, other Examination Physical Examination Exam performed by Dr. Foster in the emergency department yesterday has been reviewed and accepted as medical clearance for our unit Vital Signs Vital Signs Past 12 Hours Date Time Temp Pulse Resp B/P (MAP) Pulse Ox O2 Delivery O2 Flow Rate FiO2 06/03/17 07:01 36.8 78 16 106/68 94 100/66 06/03/17 06:43 85 16 114/61 97 06/03/17 01:47 75 18 119/69 97 Room Air 06/03/17 00:52 96 06/03/17 00:01 105 16 141/95 98 Room Air 06/02/17 23:31 97 24 117/84 100 Room Air Laboratory Results Last 24 Hours Test 06/02/17 20:45 06/02/17 21:32 06/03/17 00:35 White Blood Count 13.08 K/uL Red Blood Count 4.73 M/uL Hemoglobin 14.9 g/dL Hematocrit 43.0 % Mean Corpuscular Volume 90.9 fL Mean Corpuscular Hemoglobin 31.5 pg Mean Corpuscular Hemoglobin Concent 34.7 g/dl Platelet Count 327 K/uL Mean Platelet Volume 9.6 fL Neutrophils (%) (Auto) 46.4 % Lymphocytes (%) (Auto) 26.8 % Monocytes (%) (Auto) 4.4 % Eosinophils (%) (Auto) 20.9 % Basophils (%) (Auto) 1.0 % Neutrophils # (Auto) 6.08 K/uL Lymphocytes # (Auto) 3.50 K/uL Monocytes # (Auto) 0.57 K/uL Eosinophils # (Auto) 2.74 K/uL Basophils # (Auto) 0.13 K/uL RDW Standard Deviation 40.5 fL RDW Coefficient of Variation 12.1 % Immature Granulocyte % (Auto) 0.5 % Immature Granulocyte # (Auto) 0.06 K/uL Sodium Level 139 mmol/L Potassium Level 3.2 mmol/L Chloride Level 104 mmol/L Carbon Dioxide Level 23 mmol/L Anion Gap 12.0 mmol/L Blood Urea Nitrogen 15 mg/dl Creatinine 0.84 mg/dl Est Creatinine Clear Calc Drug Dose 90.0 ml/min Estimated GFR () 113.5 Estimated GFR (Non- 98.0 BUN/Creatinine Ratio 17.4 Random Glucose 114 mg/dl Calcium Level 9.1 mg/dl Total Bilirubin 0.3 mg/dl Direct Bilirubin 0.1 mg/dl Aspartate Amino Transf (AST/SGOT) 20 U/L Alanine Aminotransferase (ALT/SGPT) 82 U/L Alkaline Phosphatase 110 U/L Total Protein 7.8 gm/dl Albumin 4.1 gm/dl Thyroid Stimulating Hormone (TSH) 1.340 uIu/ml Human Chorionic Gonadotropin, Qual NEG Salicylates Level < 1.7 mg/dl Acetaminophen Level < 2 ug/ml Ethyl Alcohol mg/dL < 3.0 mg/dl Urine Color YELLOW Urine Appearance TURBID Urine pH 8.0 Urine Specific [place] 1.018 Urine Protein NEG Urine Glucose (UA) NEG Urine Ketones NEG Urine Occult Blood NEG Urine Nitrite NEG Urine Bilirubin NEG Urine Urobilinogen NEG Urine Leukocyte Esterase LARGE Urine WBC (Auto) >30 /hpf Urine RBC (Auto) 0-4 /hpf Urine Hyaline Casts (Auto) 0 /lpf Urine Epithelial Cells (Auto) 20-30 /lpf Urine Bacteria (Auto) 2+ Urine Crystals AMORPHOUS SEDIMENT Urine Yeast (Auto) Urine Opiates Screen NEG Urine Methadone, Qualitative NEG Urine Barbiturates NEG Urine Phencyclidine (PCP) Level NEG Ur Amphetamine/Methamphetamine NEG MDMA (Ecstasy) Screen NEG Urine Benzodiazepines Screen NEG Urine Cocaine Metabolite NEG Urine Marijuana (THC) NEG Mental Examination During interview pt is: alert and oriented Appearance: disheveled Eye contact is: poor Motor behavior is: psychomotor retardation Speech: other (slowed, minimal) Affect: tearful Mood is: depressed Thought process: other (easily distracted) Thought content: reality based without delusions Suicidal thought are: present, Plan: present, Intent: present (overdose) Homicidal thoughts are: denied Hallucinations: denies auditory, denies visual Cognition: attention grossly intact Intelligence estimated to be: average Insight: impaired Judgement: impaired Impression / Recommendations Impression 22-year-old woman who just got out of the [facility] 2 days ago, is admitted to our unit voluntarily following an intentional toxic ingestion of Zonegran. Although the patient reports she was treated for depression with Lexapro while in the [facility], today she is giving a decidedly bipolar description of episodes in which she is wired, does not sleep and spends money she does not have. She too believes that she has had mood cycling that may represent bipolar disorder and is willing to consider mood stabilizing agents. I have suggested we start start with Latuda if it is affordable with her insurance. I will have the nursing staff explore this with the pharmacy. She overdosed on Zonegran and so I will hold that today but I will renew her oxcarbazepine, and levothyroxine. She is unsure of her dose of Lexapro although I am hesitant to restart this in the absence of good mood stabilization and as above, would prefer to start Latuda. We will need to explore her aftercare arrangements, confirm appointments, likely have a meeting with her family. Poison control was consulted while in the emergency department and suggested only supportive care. Her vital signs today are stable. Review of labs reveals a possible urinary tract infection and so will order a culture. She also admits that she intentionally self injured while a patient at [facility] and so will alert staff to be vigilant. At this time, the patient requires inpatient mental health treatment due to the severity of her condition and the risk for self-harm if discharged. Inventory Assets Strengths: Support from family, is employed Needs: Improve healthy coping strategies Risk Factors Assessment : Yes /single/: Yes Higher / Fall in social status: No Access to guns: No Health problems: Yes Mental Health Diagnoses: Yes Substance use disorders: No Previous attempt: Yes Previous psychiatric stay: Yes Hopelessness: Yes Smoker: Yes Protective Factors Assessment Protestant beliefs: Yes : No Responsible for young children: No Employed: Yes Stable relationships: No Supportive family: Yes Recommendations (1) bipolar disorder NOS, depressed, severe, without psychotic features 06/03 - Patient endorses multiple episodes where she feels "wired", has decreased need for sleep and increased spending. We will have nursing explore whether Latuda is affordable with her current insurance. - Will not restart Lexapro at this time in view of possible bipolar diagnosis - Obtain records from recent [facility] hospitalization - Every 15 minute checks for safety - Encourage participation in group and individual counseling - Family meeting if indicated - Confirm outpatient appointments at [facility] - Assist the patient to learn new healthy coping strategies - Recommend avoiding all alcohol and cannabis for the foreseeable future (2) Tobacco use disorder 06/03 - Recommend abstinence or reduction. Will supply with nicotine replacement if patient requests (3) History of self injurious behavior 06/03 - History of self injuring even while in [facility] with an earring. We will encourage staff to be vigilant (4) Epilepsy 06/03 - will resume outpatient doses of oxcarbazepine - Will hold Zonegran another day in view of overdose of an entire bottle - Seizure precautions - If questions about dosages, will obtain records from [facility] ALVARE[facility] in neurology (5) Hypothyroidism 06/03 - TSH within normal limits. Continue home dosing Has been reviewed with Dr. Lili Kendrick CPT Code Initial Hospital Care: [id number]
[2017-06-03] MEDS: ACETAMINOPHEN 325 MG TAB PO PRN (15:54)
[2017-06-03] MEDS: OXCARBAZEPINE 150 MG TAB PO SCH (21:38)
[2017-06-03] MEDS: QUETIAPINE FUMARATE 25 MG TAB PO SCH (21:47)
[2017-06-04 07:02] VITALS: BP_SYST 106; BP_DIAS 70; BP_DIAS 73; PULSE 87; PULSE 89; TEMP 36.3
[2017-06-04 08:27] LABS: CHOLESTEROL/HDL RATIO 2.5
[2017-06-04] MEDS: LEVOTHYROXINE 50 MCG TAB PO SCH (08:48)
[2017-06-04] MEDS: OXCARBAZEPINE 150 MG TAB PO SCH ×2 (09:10→21:01)
[2017-06-04] MEDS: ACETAMINOPHEN 325 MG TAB PO PRN (09:20)
[2017-06-04 10:22] LABS: URINE APPEARANCE TURBID (CLEAR); URINE BILIRUBIN NEG (NEG); URINE COLOR YELLOW; URINE EPITHELIAL CELL AUTO 20-30 /lpf (0-5); URINE NITRITE NEG (NEG); URINE PH 6.5 (4.5-7.5); URINE SPECIFIC GRAVITY 1.023 (1.000-1.030); UROBILINOGEN NEG (NEG); ZZUR CULT IF INDIC CLEAN CATCH YES
[2017-06-04 10:25] LABS: MANUAL MICROSCOPIC REQUIRED? NO; REVIEW REQ? YES
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
[2017-06-04] MEDS: NICOTINE POLACRILEX 2 MG GUM MT PRN ×2 (15:52→18:42)
[2017-06-04] MEDS: QUETIAPINE FUMARATE 25 MG TAB PO SCH (21:01)
[2017-06-04] MEDS: hydrOXYzine HCL 25 MG TAB PO PRN (21:02)
[2017-06-05 07:09] VITALS: BP_SYST 112; BP_SYST 114; BP_DIAS 76; BP_DIAS 82; PULSE 83; PULSE 92; TEMP 36.9
[2017-06-05] MEDS: LEVOTHYROXINE 50 MCG TAB PO SCH (07:41)
[2017-06-05] MEDS: OXCARBAZEPINE 150 MG TAB PO SCH ×2 (09:25→21:02)
[2017-06-05] MEDS ORDERED: ESCI10TA17 PO (10:22)
[2017-06-05] MEDS: NICOTINE POLACRILEX 2 MG GUM MT PRN (10:30)
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
[2017-06-05] MEDS: QUETIAPINE FUMARATE 25 MG TAB PO SCH (21:02)
[2017-06-05] MEDS: hydrOXYzine HCL 25 MG TAB PO PRN (22:28)
[2017-06-06 06:57] VITALS: BP_SYST 111; BP_SYST 99; BP_DIAS 63; BP_DIAS 75; PULSE 66; PULSE 69; TEMP 36.7
[2017-06-06] MEDS: LEVOTHYROXINE 50 MCG TAB PO SCH (08:30)
[2017-06-06] MEDS: OXCARBAZEPINE 150 MG TAB PO SCH ×2 (09:32→21:29)
[2017-06-06] MEDS: MAGNESIUM HYDROXIDE SUSP 30 ML UDC PO PRN ×2 (11:00→19:45)
--- NOTE | 2017-06-06 11:43 | Psychiatric Progress Notes ---
Progress Note Date of Service Jun 06, 2017. Interval History Rachel Martins is a 22-year-old female who resides in [place] with her boyfriend, has a history of major depression and generalized anxiety disorder who presented to the ED following an intentional toxic ingestion of zonegran in a suicide attempt. She had just been discharged from the [facility] 2 days prior, and is admitted voluntarily. Chief Complaint "A little concerned. ". Subjective Patient was seen & assessed interval progress reviewed with Treatment Team. The patient had a phone meeting with her mother this AM during which they talked about many things, and the patient felt overwhelmed. She has now decided that she has to move home and will need to find someone to sublet her apt. 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 She was able to accomplish her goal to do her laundry yesterday as well. Her mood is better today and denies any SI or violent thoughts toward the male from [facility] that she feels manipulated her. She is feeling much closer to being able to go home now that she has a plan. Her sleep was restless last night, but observed to be for 6.5 hours by staff. Appetite is good. She continues to deny sxs of UTI, but culture positive and will start ABX Review of Systems Constitutional: No fever, No chills, No sweats, No weight loss, No weakness, No fatigue, No problem reported ENT: No hearing loss, No unusual epistaxis, No nasal symptoms, No sore throat, No tinnitus, No dental problems, No trouble swallowing, No problem reported Respiratory: No cough, No sputum, No wheezing, No shortness of breath, No dyspnea on exertion, No dyspnea at rest, No hemoptysis, No problem reported Cardiovascular: No chest pain, No orthopnea, No PND, No edema, No claudication , No palpitations, No problem reported Abdomen: No pain, No nausea, No vomiting, No diarrhea, No constipation, No GI bleeding, No problem reported Musculoskeletal: No joint pain, No muscle pain, No swelling, No calf pain, No problem reported Neurologic: No memory loss, No paralysis, No weakness, No numbness/tingling, No vertigo, No balance problems, No problem reported Psychiatric: + depression symptoms (improving), + anxiety Integumentary: No rash, No itch, No new/changing skin lesions, No color change , No bleeding, No problem reported Sleep Information Total Hours of Sleep: 6.50 Meal Information Percent of Breakfast Consumed: 100 Percent of Lunch Consumed: 90 Percent of Dinner Consumed: 100 Mental Status Exam During interview pt is: alert and oriented, cooperative Appearance: appropriately dressed (with a blanket wrapped around her.), appropriately groomed Eye contact is: fair Motor behavior is: steady gait & station, no abnormal motor movements Speech: normal in rate, rhythm & volume Affect: blunted Mood is: anxious Thought process: goal directed Thought content: reality based without delusions Suicidal thought are: denied Homicidal thoughts are: denied Hallucinations: denies auditory, denies visual Cognition: attention grossly intact Intelligence estimated to be: average Insight: impaired Judgement: impaired Medication Trials (1) Past Psych Medications Lamotrigine for seizures - rash Mirtazapine - ineffective Last Edited By: Lili Kendrick on Jun 04, 2017 10:05 Impression Having tackled some of her decisions, today she is feeling better and without SI. Will be moving home after she finds a subletter but in the meanwhile will call work again today to talk about returning which we recommend she return to right away. Sensitivity back on UA and will start Macrobid 100 mg. BID X 7d . If progress continues, would like to discharge tomorrow so that she can make her OP therapy appt. Plan (1) bipolar disorder NOS, depressed, severe, without psychotic features 06/03 - Patient endorses multiple episodes where she feels "wired", has decreased need for sleep and increased spending. We will have nursing explore whether Latuda is affordable with her current insurance. - Will not restart Lexapro at this time in view of possible bipolar diagnosis - Obtain records from recent [facility] hospitalization - Every 15 minute checks for safety - Encourage participation in group and individual counseling - Family meeting if indicated - Confirm outpatient appointments at [facility] - Assist the patient to learn new healthy coping strategies - Recommend avoiding all alcohol and cannabis for the foreseeable future 06/04 - Differential includes unipolar depression, bipolar disorder, or borderline personality disorder. There is also an anxiety component. Continue oxcarbazepine 300 mg twice a day (being prescribed for seizures, but also acts as a mood stabilizer) and quetiapine 50 mg daily at bedtime. Lurasidone was not covered. Fasting labs were checked today for baseline on an atypical antipsychotic and were normal. - Explore option of a family meeting, either with her boyfriend whom she lives with her possibly her mother who is in [place]. - Patient has been advised that groups and therapy are a big part of her treatment here, and that she should be getting out of bed during the day and participating in them. We will have staff lock her door during group times if she is not able to motivate to do this on her own. 06/05 - Continue Seroquel 50 mg. HS - Meeting with boyfriend and mother - monitoring labs on atypicals WNL. 06/06 - Meeting with mother this AM - Plans to move home eventually, but will return to work while subletting her apartment (2) Tobacco use disorder 06/03 - Recommend abstinence or reduction. Will supply with nicotine replacement if patient requests 06/04 - patient requesting to smoke a cigarette, and was informed that this is a nonsmoking campus. Nicotine gum ordered at her request. (3) History of self injurious behavior 06/03 - History of self injuring even while in [place] with an earring. We will encourage staff to be vigilant. (4) Epilepsy 06/03 - will resume outpatient doses of oxcarbazepine - Will hold Zonegran another day in view of overdose of an entire bottle - Seizure precautions - If questions about dosages, will obtain records from [facility]ie ALVAREZ in neurology (5) Hypothyroidism 06/03 - TSH within normal limits. Continue home dosing (6) UTI (urinary tract infection) 06/04 - urinalysis showed large leukocyte esterase, > 30 WBCs, 2+ bacteria, and 20-30 epis. Culture ordered. 06/06 - Macrobid 100 mg. BID X 7d (7) Borderline personality disorder 06/05 - Meets DSM V criteria - Will provide educational material - Will require intermission coordinator therapy (8) Alcohol abuse 06/06 The patient's AUDIT score suggests problematic drinking (Zone III WHO). Brief intervention was offered and accepted Intervention (if performed) was greater than 5 min in length. Brief interventions include: 1. Assess Readiness to Quit, 2. Advise: Help Patient to Reduce or Abstain from Alcohol, 3. Agree: Set Specific, Feasible Goals, 4. Assist: Anticipate barriers, Problem-Solving Solutions. Social work to 5. Arrange: Referrals to appropriate treatment. Summary of intervention: The patient is in precontemplation stage with regards to transtheoretical model of change. The patient is advised to decrease alcohol consumption due to depressant effects and risk of interactions with prescription medications. The patient agreed to reduce and will be provided with recovery materials to continue to education self on how to cope with their condition without drinking. Discharge / Aftercare Planning Primary Care Physician: Name: Dr Rehman Therapist: Name: [facility] Step down appointment Date of Appointment: Jun 07, 2017 Time of Appointment: 10:00am Neurologist: Name: Dr Arreaga Date of Appointment: Aug 12, 2017 Time of Appointment: 3:30pm Visit Code E&M Code: 82288 Inventory Assets Strengths: Support from family, is employed Needs: Improve healthy coping strategies Risk Factors Assessment : Yes /single/: Yes Higher / Fall in social status: No Health problems: Yes Mental Health Diagnoses: Yes Substance use disorders: No Previous attempt: Yes Previous psychiatric stay: Yes Hopelessness: Yes Smoker: Yes Protective Factors Assessment Restorationism beliefs: Yes : No Responsible for young children: No Employed: Yes Stable relationships: No Supportive family: Yes Data Vital Signs Last 24 Hrs: Date Time Temp Pulse Resp B/P (MAP) Pulse Ox O2 Delivery O2 Flow Rate FiO2 06/06/17 06:57 36.7 66 16 99/63 69 111/75 Meds Administered Last 24 Hrs: Current Inpatient Medications Medications (Trade) Dose Ordered Sig/Amandeep Route Start Time Stop Time Status Last Admin Dose Admin Acetaminophen (Tylenol Tab) 650 mg Q4H PRN PO 06/03/17 06:45 07/03/17 06:44 06/04/17 09:20 650 MG Al Hydroxide/Mg Hydroxide (Maalox Susp) 30 ml Q4H PRN PO 06/03/17 06:45 07/03/17 06:44 Bismuth Subsalicylate (Kaopectate Liqd) 15 ml DAILY PRN PO 06/03/17 06:45 07/03/17 06:44 Magnesium Hydroxide (Milk Of Magnesia Susp) 30 ml DAILY PRN PO 06/03/17 06:45 12/13/17 06:44 06/06/17 11:00 30 ML Sodium Chloride ([place] Nasal [place]) PRN PRN NA 06/03/17 06:45 07/03/17 06:44 Hydroxyzine HCl (Vistaril Tab) 50 mg HSZ PRN PO 06/03/17 06:45 07/03/17 06:44 06/05/17 22:28 50 MG Hydroxyzine HCl (Vistaril Tab) 25 mg Q4H PRN PO 06/03/17 06:45 07/03/17 06:44 06/04/17 15:50 25 MG Levothyroxine Sodium (Synthroid Tab) 50 mcg DAILYBB PO 06/04/17 08:00 07/04/17 07:59 06/06/17 08:30 50 MCG Oxcarbazepine (Trileptal Tab) 300 mg BID PO 06/03/17 22:00 07/03/17 21:59 06/06/17 09:32 300 MG Quetiapine Fumarate (seroQUEL TAB) 50 mg HS PO 06/03/17 22:00 07/03/17 21:59 06/05/17 21:02 50 MG Nicotine Polacrilex (Nicorette 2MG Gum) 1 piece Q2H PRN MT 06/04/17 10:00 07/04/17 09:59 06/05/17 10:30 1 PIECE Nitrofurantoin Macrocrystals (Macrobid Cap) 100 mg BID PO 06/06/17 22:00 06/14/17 22:00 UNV Nitrofurantoin Macrocrystals (Macrobid Cap) 100 mg 1123 ONCE PO 06/06/17 11:23 06/06/17 11:24 UNV Lab Results Last 24 Hrs: 06/02/17 20:45 Red Blood Count 4.73, Mean Corpuscular Volume 90.9, Mean Corpuscular Hemoglobin 31.5, Mean Corpuscular Hemoglobin Concent 34.7, Mean Platelet Volume 9.6, Neutrophils (%) (Auto) 46.4, Lymphocytes (%) (Auto) 26.8, Monocytes (%) (Auto) 4.4, Eosinophils (%) (Auto) 20.9, Basophils (%) (Auto) 1.0, Neutrophils # (Auto ) 6.08, Lymphocytes # (Auto) 3.50, Monocytes # (Auto) 0.57, Eosinophils # (Auto ) 2.74, Basophils # (Auto) 0.13 06/02/17 20:45 Test 06/02/17 20:45 06/02/17 21:32 06/03/17 00:35 06/04/17 07:14 White Blood Count 13.08 K/uL (4.8-10.8) Red Blood Count 4.73 M/uL (4.2-5.4) Hemoglobin 14.9 g/dL (12.0-16.0) Hematocrit 43.0 % (37-47) Mean Corpuscular Volume 90.9 fL (80-100) Mean Corpuscular Hemoglobin 31.5 pg (25-34) Mean Corpuscular Hemoglobin Concent 34.7 g/dl (32-36) Platelet Count 327 K/uL (130-400) Mean Platelet Volume 9.6 fL (7.4-10.4) Neutrophils (%) (Auto) 46.4 % Lymphocytes (%) (Auto) 26.8 % Monocytes (%) (Auto) 4.4 % Eosinophils (%) (Auto) 20.9 % Basophils (%) (Auto) 1.0 % Neutrophils # (Auto) 6.08 K/uL (1.4-6.5) Lymphocytes # (Auto) 3.50 K/uL (1.2-3.4) Monocytes # (Auto) 0.57 K/uL (0.11-0.59) Eosinophils # (Auto) 2.74 K/uL (0-0.5) Basophils # (Auto) 0.13 K/uL (0-0.2) RDW Standard Deviation 40.5 fL (36.4-46.3) RDW Coefficient of Variation 12.1 % (11.5-14.5) Immature Granulocyte % (Auto) 0.5 % Immature Granulocyte # (Auto) 0.06 K/uL (0.00-0.02) Anion Gap 12.0 mmol/L (3-11) Est Creatinine Clear Calc Drug Dose 90.0 ml/min Estimated GFR () 113.5 Estimated GFR (Non- 98.0 BUN/Creatinine Ratio 17.4 (10-20) Calcium Level 9.1 mg/dl (8.5-10.1) Total Bilirubin 0.3 mg/dl (0.2-1) Direct Bilirubin 0.1 mg/dl (0-0.2) Aspartate Amino Transf (AST/SGOT) 20 U/L (15-37) Alanine Aminotransferase (ALT/SGPT) 82 U/L (12-78) Alkaline Phosphatase 110 U/L (45-117) Total Protein 7.8 gm/dl (6.4-8.2) Albumin 4.1 gm/dl (3.4-5.0) Thyroid Stimulating Hormone (TSH) 1.340 uIu/ml (0.300-4.500) Human Chorionic Gonadotropin, Qual NEG (NEG) Salicylates Level < 1.7 mg/dl (2.8-20) Acetaminophen Level < 2 ug/ml (10-30) Ethyl Alcohol mg/dL < 3.0 mg/dl (0-3) Urine Yeast (Auto) (NONE PRSENT) Urine Opiates Screen NEG (NEG) Urine Methadone, Qualitative NEG (NEG) Urine Barbiturates NEG (NEG) Urine Phencyclidine (PCP) Level NEG (NEG) Ur Amphetamine/Methamphetamine NEG (NEG) MDMA (Ecstasy) Screen NEG (NEG) Urine Benzodiazepines Screen NEG (NEG) Urine Cocaine Metabolite NEG (NEG) Urine Marijuana (THC) NEG (NEG) Fasting Glucose 77 mg/dl (70-99) Triglycerides Level 79 mg/dl (0-150) Cholesterol Level 195 mg/dl (0-200) HDL Cholesterol 77 mg/dl LDL Cholesterol, Calculated 102 mg/dl VLDL Cholesterol, Calculated 16 mg/dl Cholesterol/HDL Ratio 2.5 Test 06/04/17 09:30 Urine Color YELLOW Urine Appearance TURBID (CLEAR) Urine pH 6.5 (4.5-7.5) Urine Specific [place] 1.023 (1.000-1.030) Urine Protein NEG (NEG) Urine Glucose (UA) NEG (NEG) Urine Ketones NEG (NEG) Urine Occult Blood NEG (NEG) Urine Nitrite NEG (NEG) Urine Bilirubin NEG (NEG) Urine Urobilinogen NEG (NEG) Urine Leukocyte Esterase MODERATE (NEG) Urine WBC (Auto) 10-30 /hpf (0-5) Urine RBC (Auto) 0-4 /hpf (0-4) Urine Hyaline Casts (Auto) 1-5 /lpf (0-5) Urine Epithelial Cells (Auto) 20-30 /lpf (0-5) Urine Bacteria (Auto) 1+ (NEG) Urine Crystals AMORPHOUS SEDIMENT (NONE Urine Pathogenic Casts /lpf (0) Date/Time Source Procedure Growth Status 06/04/17 09:30 Urine , Clean Catch Urine Culture - Preliminary Staphylococcus Saprophyticus Resulted
[2017-06-06] MEDS ORDERED: NITROFURANTOIN MONOHYDRATE 100 MG CAP PO ONE (11:45)
[2017-06-06] MEDS: NITROFURANTOIN MONOHYDRATE 100 MG CAP PO SCH (21:29)
[2017-06-06] MEDS: QUETIAPINE FUMARATE 25 MG TAB PO SCH (21:29)
[2017-06-06] MEDS: hydrOXYzine HCL 25 MG TAB PO PRN (21:30)
[2017-06-07 07:10] VITALS: BP_SYST 120; BP_SYST 121; BP_DIAS 78; BP_DIAS 81; PULSE 74; PULSE 81; TEMP 36.5
[2017-06-07] MEDS: LEVOTHYROXINE 50 MCG TAB PO SCH (08:00)
[2017-06-07] MEDS: NITROFURANTOIN MONOHYDRATE 100 MG CAP PO SCH (08:00)
[2017-06-07] MEDS: OXCARBAZEPINE 150 MG TAB PO SCH (08:00)
[2017-06-07] MEDS ORDERED: ESCI10TA17 PO (09:01)
[2017-06-07] MEDS ORDERED: MCRB100 PO (09:01)
[2017-06-07] MEDS ORDERED: QUET5TAB PO (09:01)
--- NOTE | 2017-06-07 09:08 | Discharge Instructions ---
Discharge Information Report Includes Report will include the: Discharge Instructions & Summary Admission Admission Date / Time: Jun 03, 2017 at 06:32 Reason for Admission: 201, Unspecified Mood Disorder Discharge Discharge Diagnosis / Problem: depression, borderline personality disorder Condition at Discharge: Fair Discharge Goals Goal(s): Decrease discomfort, Improve disease control Activity Recommendations Activity Limitations: resume your previous activity . Instructions / Follow-Up Instructions / Follow-Up . SPECIAL CARE INSTRUCTIONS: 1. Follow through with your scheduled aftercare appointments. If unable to keep an appointment, please call to reschedule. 2. Take your medication only as prescribed. Medication should not be changed or stopped without the approval of your doctor. In the event of worsening symptoms or concerns about side effects, contact your doctor immediately. 3. Utilize new healthy coping skills, anger management skills, and stress management skills learned during your hospitalization. Journal feelings and process them with a support person. Identify stressors or situations that may result in relapse, deterioration or inappropriate behaviors and develop a plan to deal with those issues. 4. If your coping skills are ineffective and you are in crisis, contact your outpatient providers for direction. If unable to reach your providers, please call the CAN HELP LINE AT or go to the closest Emergency Room. 5. Avoid alcohol and un-prescribed drugs. 6. You have been provided with the Mental Health Advance Directives Pamphlet for your review. AFTERCARE APPOINTMENTS: * Please call your insurance company prior to your scheduled appointment to confirm your aftercare providers are covered. Take your insurance information to your appointments. . Discharge / Aftercare Planning Primary Care Physician: Name: Dr Rehman Appointment Notes: As needed Psychiatrist: Name: [facility] Step Down Appointment Date of Appointment: Jun 07, 2017 Time of Appointment: 10:00am Therapist: Name Of Therapist: [facility]-Timothy Grady Date of Appointment: Jun 17, 2017 Time of Appointment: 10:00am Appointment Comments: Arrive 15 minutes early to complete paper work Neurologist: Name: Dr Arreaga Date of Appointment: Aug 12, 2017 Time of Appointment: 3:30pm . Follow-Up Care Plan for Follow-Up Care: Will go directly from the hospital to a therapy appt Current Hospital Diet Patient's current hospital diet: Regular Diet Discharge Diet Recommended Diet: Regular Diet Procedures Procedures Performed: No Pending Studies Pending Studies at Discharge: No Medical Emergencies . Who to Call and When: Medical Emergencies: For questions or emergencies related to your hospital stay, please contact the Inpatient Behavioral Health Unit at [phone]. A application security architect is on-call 11/02 for the Behavioral Health Unit for emergencies At any time you feel your situation is an emergency, you may also call 911 immediately. . Non-Emergent Contact Non-Emergency issues call your: Psychiatrist, Therapist Advance Directives Existing Advance Directive: No Do You Have an Existing Mental: No Existing Living Will: No Existing Power of Soap Grinder: No Advance Directives Info Given: To Pt/S.O. Advance Directives Reason: Declines as Mental Health Visit. Discharge Summary Admission HPI Per the Admitting provider: Rachel is a 22 yo woman who reports that she has been depressed for the last 2.5 years relative to multiple breakups and other stressors that she is poorly able to explain. She had never been in psychiatric treatment until 3 weeks ago when she made her first suicide attempt by overdosing on Nyquil. She was hospitalized at the [facility] for 20 days, having just been discharged on Saturday , 2 days ago. She reports that she was treated with Lexapro during her stay and diagnosed with depression. During her stay she decided that she needed to break up with her boyfriend of 2.5 years saying that she felt "stuck", "codependent". Upon leaving the [facility] she says that she had a visit with her mother who came up from the [facility], looked at some apartments, but then returned to the apartment she shares with her boyfriend, but asked him to go stay with his parents. She felt like she had no resources: no friends, no place to go, and began feeling sadder. On Saturday after mosque, she went to the pharmacy to continuous pickling line pickler her seizure meds (but did not fill her antidepressant) and when she couldn't shake the sadness, overdosed on the entire bottle of Zonegran about 7 pm. She summoned her BF after taking the OD, and he brought her to the ED. 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 Today the patient is a difficult historian, finding it difficult to express herself verbally. She indicates that she continues to feel depressed and admits that she ingested the Zonegran overdose yesterday because she "didn't want to be here" anymore. She reports that she has been having trouble sleeping , getting only about 4 hours per night. She experiences difficulty staying asleep and this has been going on for months. Her appetite has been "not good" and her weight has been up and down, currently saying she is down 5-10 pounds over the last 5-6 months. Her energy is described as "sleepy" and tends to sleep a great deal up to 16 hours at night. Although she is getting to work, she finds it difficult to get there. She describes having anxiety on a chronic basis, going on for years. She also experiences panic attacks that occur as frequently as weekly, triggered usually by work. She describes a sense of being unable to breathe during panic attacks. She reports a history of eating disorder behaviors, not wanting to put on weight and attempting to purge but says that it "never worked". She reports a history of self-injurious behaviors , usually cutting on her legs. Her last episode occurred while she was in the [facility] when she took her earring often used it to injure her left leg. She describes chronic problems with irritability but denies outright anger. She endorses periods during which she feels "wired", has a decreased need for sleep , increased spending $100-$300. Her last episode was prior to going to [facility]. She cannot tell me when the started or how many episodes she has had. Hospital Course (1) bipolar disorder NOS, depressed, severe, without psychotic features 06/03 - Patient endorses multiple episodes where she feels "wired", has decreased need for sleep and increased spending. We will have nursing explore whether Latuda is affordable with her current insurance. - Will not restart Lexapro at this time in view of possible bipolar diagnosis - Obtain records from recent [place] hospitalization - Every 15 minute checks for safety - Encourage participation in group and individual counseling - Family meeting if indicated - Confirm outpatient appointments at [facility] - Assist the patient to learn new healthy coping strategies - Recommend avoiding all alcohol and cannabis for the foreseeable future 06/04 - Differential includes unipolar depression, bipolar disorder, or borderline personality disorder. There is also an anxiety component. Continue oxcarbazepine 300 mg twice a day (being prescribed for seizures, but also acts as a mood stabilizer) and quetiapine 50 mg daily at bedtime. Lurasidone was not covered. Fasting labs were checked today for baseline on an atypical antipsychotic and were normal. - Explore option of a family meeting, either with her boyfriend whom she lives with her possibly her mother who is in [place]. - Patient has been advised that groups and therapy are a big part of her treatment here, and that she should be getting out of bed during the day and participating in them. We will have staff lock her door during group times if she is not able to motivate to do this on her own. 06/05 - Continue Seroquel 50 mg. HS - Meeting with boyfriend and mother - monitoring labs on atypicals WNL. 06/06 - Meeting with mother this AM - Plans to move home eventually, but will return to work while subletting her apartment (2) Tobacco use disorder 06/03 - Recommend abstinence or reduction. Will supply with nicotine replacement if patient requests 06/04 - patient requesting to smoke a cigarette, and was informed that this is a nonsmoking campus. Nicotine gum ordered at her request. (3) History of self injurious behavior 06/03 - History of self injuring even while in [place] with an earring. We will encourage staff to be vigilant. (4) Epilepsy 06/03 - will resume outpatient doses of oxcarbazepine - Will hold Zonegran another day in view of overdose of an entire bottle - Seizure precautions - If questions about dosages, will obtain records from [facility] in neurology (5) Hypothyroidism 06/03 - TSH within normal limits. Continue home dosing (6) UTI (urinary tract infection) 06/04 - urinalysis showed large leukocyte esterase, > 30 WBCs, 2+ bacteria, and 20-30 epis. Culture ordered. 06/06 - Macrobid 100 mg. BID X 7d (7) Borderline personality disorder 06/05 - Meets DSM V criteria - Will provide educational material - Will require shelter therapy (8) Alcohol abuse 06/06 The patient's AUDIT score suggests problematic drinking (Zone III WHO). Brief intervention was offered and accepted Intervention (if performed) was greater than 5 min in length. Brief interventions include: 1. Assess Readiness to Quit, 2. Advise: Help Patient to Reduce or Abstain from Alcohol, 3. Agree: Set Specific, Feasible Goals, 4. Assist: Anticipate barriers, Problem-Solving Solutions. Social work to 5. Arrange: Referrals to appropriate treatment. Summary of intervention: The patient is in precontemplation stage with regards to transtheoretical model of change. The patient is advised to decrease alcohol consumption due to depressant effects and risk of interactions with prescription medications. The patient agreed to reduce and will be provided with recovery materials to continue to education self on how to cope with their condition without drinking. Risk Factors Assessment : Yes /single/: Yes Higher / Fall in social status: No Health problems: Yes Mental Health Diagnoses: Yes Substance use disorders: No Previous attempt: Yes Previous psychiatric stay: Yes Hopelessness: Yes Smoker: Yes Protective Factors Assessment Adventism beliefs: Yes : No Responsible for young children: No Employed: Yes Stable relationships: No Supportive family: Yes Day of Discharge Assessment COURSE OF HOSPITALIZATION: The patient was on our unit for 4 days. She was admitted with severe depression having overdosed on her seizure medications. During her stay she was started on Seroquel 50 mg at bedtime as a mild mood stabilizer in view of reports of hypomanic symptoms, and as an aid to sleep. She was continued on her seizure medications. She was also diagnosed with urinary tract infection and started on Macrobid 100 mg twice a day for a total of 7 days. She was asymptomatic. Her big stressor is that of her relationship with her boyfriend. She had been in the [facility] for fully 3 weeks, having been discharged 2 days prior to being admitted to our unit. She feels that she is in a toxic relationship with him, codependent, not able to make any decisions herself. She has decided to break up with him that neither of them are able to move out of the apartment currently and so she plans to find a sublet in the near future and move home with her mother. This was a difficult decision for her to make but ultimately she felt it was better than remaining in the apartment with her ex-boyfriend. She showed some decidedly borderline traits during her stay and upon review of the criteria she meets full criteria for borderline personality disorder and this was shared with her. She has struggled on a long-term basis with interpersonal relationships, always putting herself in a position of being a victim. She had suicidal thinking through the first portion of her stay, however this abated by discharge. She had a difficult time getting out of bed the first day or 2 but after that was able to attend groups. She did have a phone meeting with her mother which she felt was difficult as they had to discuss all of her current problems and a plan for the future. She also had trouble making decisions about being in communication with work, but with help the community mental health social worker she was able to call them to let them know she was in the hospital but would be able to return to work next week. DAY OF DISCHARGE ASSESSMENT: Today the patient is requesting discharge. She says that she "finally feels ready to get back out there" and resume her life. She will return to work on Saturday. She continues to deny any suicidal or homicidal ideation. Today she is casually and appropriately dressed and groomed. Gait and station are within normal limits. Eye contact is good. Affect is restricted but able to smile. Speech is of normal rate volume and tone. Thoughts are organized, goal-directed, without evidence of thought disorder. Recent and remote memory are intact per conversation. Intelligence is estimated to be average. Insight and judgment are improved over admission. Laboratory Test 06/02/17 20:45 06/02/17 21:32 06/03/17 00:35 06/04/17 07:14 White Blood Count 13.08 Red Blood Count 4.73 Hemoglobin 14.9 Hematocrit 43.0 Mean Corpuscular Volume 90.9 Mean Corpuscular Hemoglobin 31.5 Mean Corpuscular Hemoglobin Concent 34.7 Platelet Count 327 Mean Platelet Volume 9.6 Neutrophils (%) (Auto) 46.4 Lymphocytes (%) (Auto) 26.8 Monocytes (%) (Auto) 4.4 Eosinophils (%) (Auto) 20.9 Basophils (%) (Auto) 1.0 Neutrophils # (Auto) 6.08 Lymphocytes # (Auto) 3.50 Monocytes # (Auto) 0.57 Eosinophils # (Auto) 2.74 Basophils # (Auto) 0.13 RDW Standard Deviation 40.5 RDW Coefficient of Variation 12.1 Immature Granulocyte % (Auto) 0.5 Immature Granulocyte # (Auto) 0.06 Sodium Level 139 Potassium Level 3.2 Chloride Level 104 Carbon Dioxide Level 23 Anion Gap 12.0 Blood Urea Nitrogen 15 Creatinine 0.84 Est Creatinine Clear Calc Drug Dose 90.0 Estimated GFR () 113.5 Estimated GFR (Non- 98.0 BUN/Creatinine Ratio 17.4 Random Glucose 114 Calcium Level 9.1 Total Bilirubin 0.3 Direct Bilirubin 0.1 Aspartate Amino Transferase (AST) 20 Alanine Aminotransferase (ALT) 82 Alkaline Phosphatase 110 Total Protein 7.8 Albumin 4.1 Thyroid Stimulating Hormone (TSH) 1.340 Human Chorionic Gonadotropin, Qual NEG Salicylates Level < 1.7 Acetaminophen Level < 2 Ethyl Alcohol mg/dL < 3.0 Urine Color YELLOW Urine Appearance TURBID Urine pH 8.0 Urine Specific [place] 1.018 Urine Protein NEG Urine Glucose (UA) NEG Urine Ketones NEG Urine Occult Blood NEG Urine Nitrite NEG Urine Bilirubin NEG Urine Urobilinogen NEG Urine Leukocyte Esterase LARGE Urine WBC (Auto) >30 Urine RBC (Auto) 0-4 Urine Hyaline Casts (Auto) 0 Urine Epithelial Cells (Auto) 20-30 Urine Bacteria (Auto) 2+ Urine Crystals AMORPHOUS SEDIMENT Urine Yeast (Auto) Urine Opiates Screen NEG Urine Methadone, Qualitative NEG Urine Barbiturates NEG Urine Phencyclidine (PCP) Level NEG Ur Amphetamine/Methamphetamine NEG MDMA (Ecstasy) Screen NEG Urine Benzodiazepines Screen NEG Urine Cocaine Metabolite NEG Urine Marijuana (THC) NEG Fasting Glucose 77 Triglycerides Level 79 Cholesterol Level 195 HDL Cholesterol 77 LDL Cholesterol, Calculated 102 VLDL Cholesterol, Calculated 16 Cholesterol/HDL Ratio 2.5 Test 06/04/17 09:30 Urine Color YELLOW Urine Appearance TURBID Urine pH 6.5 Urine Specific [place] 1.023 Urine Protein NEG Urine Glucose (UA) NEG Urine Ketones NEG Urine Occult Blood NEG Urine Nitrite NEG Urine Bilirubin NEG Urine Urobilinogen NEG Urine Leukocyte Esterase MODERATE Urine WBC (Auto) 10-30 Urine RBC (Auto) 0-4 Urine Hyaline Casts (Auto) 1-5 Urine Epithelial Cells (Auto) 20-30 Urine Bacteria (Auto) 1+ Urine Crystals AMORPHOUS SEDIMENT Urine Pathogenic Casts Total Time Total Time Spent (min): Greater than 30 minutes Total Time Included: examination of the patient, discharge planning, medication reconciliation, communication with other providers Tobacco Cessation at Discharge Smoking Status: Light Tobacco Smoker FDA approved Prescription: declined med & out pt counseling
== END 2017-06-07 09:20 | disposition home or self-care (01) | DRG 885 ==
LOC: C.EDB 20:35 → C.MHU 06-03 06:32 → ENRESERV 06-03 06:32
PROVIDERS: ADMIT Psychiatry & Neurology Psychiatry; ATTEND Psychiatry & Neurology Psychiatry
DX: F31.4 Bipolar disorder, current episode depressed, severe, without psychotic features (principal); N39.0 Urinary tract infection, site not specified; T42.72XA Poisoning by unspecified antiepileptic and sedative-hypnotic drugs, intentional self-harm, initial encounter; E87.6 Hypokalemia; F60.3 Borderline personality disorder; F10.10 Alcohol abuse, uncomplicated; G40.909 Epilepsy, unspecified, not intractable, without status epilepticus; E03.9 Hypothyroidism, unspecified; F17.200 Nicotine dependence, unspecified, uncomplicated; Z79.899 Other long term (current) drug therapy; Z91.5 Personal history of self-harm; Z81.8 Family history of other mental and behavioral disorders; Z81.1 Family history of alcohol abuse and dependence